=== PATIENT | female | born 1980 | race Caucasian/White ===

== ENCOUNTER 2017-12-20 17:44 | Emergency (ER) | payer MEDICAID, OTHER ==
[~2017-12-20] VITALS: Ht 165.1 cm; Wt 72.0 kg
[2017-12-20 17:46] VITALS: BP 130/79
[2017-12-20] MEDS ORDERED: LIDOCAINE 1%, 10ML INFIL ONE (18:00)
[2017-12-20] MEDS ORDERED: LIDOCAINE-MPF 1%, 5ML ONE (18:03)
[2017-12-20] MEDS ORDERED: BACITRACIN ZINC OINT 500U/GM, 0.9 GM ONE (18:28)
== END 2017-12-20 19:32 ==
LOC: ED 18:58
DX: S01.412A Laceration without foreign body of left cheek and temporomandibular area, initial encounter (principal); X58.XXXA Exposure to other specified factors, initial encounter; Y93.89 Activity, other specified; Y92.89 Other specified places as the place of occurrence of the external cause; Y99.8 Other external cause status
CPT/HCPCS: 12051; 99284; J3490